=== PATIENT | female | born 1990 | race Caucasian/White ===

== ENCOUNTER → 2025-03-10 08:39 | Outpatient (CLI) | payer OTHER, SELFPAY ==
[2025-03-10 09:06] LABS: Add Manual Diff / Slide Review NO; Hematocrit 44.1 % (36-46); Hemoglobin 15.4 g/dL (12.0-16.0); Lymphocytes Absolute Auto 1800 /uL (1100-4500); Mean Corpuscular HGB Conc 35.0 % (30-36); Mean Corpuscular Hemoglobin 30.9 PG (26-34); Mean Corpuscular Volume 88.3 fL (80-100); Platelet Count 222 X10^3/uL (150-400)
[2025-03-10 09:31] LABS: Hemoglobin A1C% w Est Avg Glu 5.1 % (4.0-6.0)
[2025-03-10 09:33] LABS: Alanine Aminotransferase 21 IU/L (<35); Albumin 4.8 g/dL (3.5-5.0); Albumin Globulin Ratio 1.7 (1.0-2.8); Alkaline Phosphatase 74 U/L (38-126); Blood Urea Nitrogen 12 mg/dL (7-17); Calcium 9.8 mg/dL (8.4-10.2); Carbon Dioxide 27 mmol/L (22-32); Chloride 105 mmol/L (98-107); Estimated Glomerular Filt Rate > 60 mL/min (>60); Globulin 2.9 g/dL (1.7-4.1); Glucose 108 mg/dL (70-99); HEMOLYSIS < 15 (0-50); Potassium 4.2 mmol/L (3.4-5.1); Sodium 140 mmol/L (137-145); Total Protein 7.7 g/dL (6.3-8.2)
[2025-03-10 09:49] LABS: Follicle Stimulating Hormone 6.59 mIU/mL
[2025-03-10 10:03] LABS: TSH w/ Reflex to FT4 2.64 uIU/mL (0.47-4.68)
[2025-03-10 10:05] LABS: Estradiol, Total 87.9 pg/mL
[2025-03-11 12:36] LABS: Trichomoas vaginalis Negative (Negative)
== END ==
PROVIDERS: Referring Provider Obstetrics & Gynecology; Visit Provider Obstetrics & Gynecology
DX: N92.6 Irregular menstruation, unspecified (principal); Z31.9 Encounter for procreative management, unspecified; R10.20 Pelvic and perineal pain unspecified side; N94.12 Deep dyspareunia; R53.83 Other fatigue; N89.8 Other specified noninflammatory disorders of vagina
CPT/HCPCS: 36415; 80053; 81514; 82670; 83001; 83036; 84146; 84402; 84403; 84443; 85025